=== PATIENT | male | born 2005 | race Caucasian/White ===

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

== ENCOUNTER 2024-01-21 19:57 | Emergency (ER) | payer OTHER, BC ==
[2024-01-21 20:16] VITALS: BP 124/77; PULSE 101; RESP 22; TEMP 98.8; BMI 25.8
[2024-01-21] MEDS ORDERED: IBUPROFEN 400 MG TABLET (FP) PO ONE (21:34)
[2024-01-21] MEDS ORDERED: METHOCARBAMOL 500 MG TABLET ONE (21:34)
[2024-01-21] MEDS: IBUPROFEN 400 MG TABLET (FP) PO ONE (21:36)
[2024-01-21] MEDS: METHOCARBAMOL 500 MG TABLET PO ONE (21:36)
== END 2024-01-21 21:56 | disposition home or self-care (01) ==
LOC: JERFT 19:57 → JER 19:57
DX: M54.2 Cervicalgia (principal); M25.531 Pain in right wrist; M54.9 Dorsalgia, unspecified; V43.52XA Car driver injured in collision with other type car in traffic accident, initial encounter
CPT/HCPCS: 99283-25